=== PATIENT | male | born 1995 | race African-American/Black ===

== ENCOUNTER 2018-09-25 11:26 | Emergency (ER) | payer OTHER ==
[~2018-09-25] VITALS: Ht 177.8 cm; Wt 88.5 kg
--- NOTE | 2018-09-25 11:55 | PHYS DOC ---
Adult General Chief Complaint Chief Complaint: SHOULDER INJURY HPI HPI 23-year-old male presents with right shoulder pain. The patient was climbing a rope at the local gym when he fell. He fell on his right arm stretched arm. He currently only has pain in the clavicle and superior shoulder region. There does appear to be some deformity. The patient denies numbness or tingling. He is concern for fracture. He denies any other injuries or complaints.[] Review of Systems Review of Systems Constitutional: Denies fever or chills [] Eyes: Denies change in visual acuity, redness, or eye pain [] HENT: Denies nasal congestion or sore throat [] Respiratory: Denies cough or shortness of breath [] Cardiovascular: No additional information not addressed in HPI [] GI: Denies abdominal pain, nausea, vomiting, bloody stools or diarrhea [] : Denies dysuria or hematuria [] Musculoskeletal: Right shoulder and clavicle pain[] Integument: Denies rash or skin lesions [] Neurologic: Denies headache, focal weakness or sensory changes [] Endocrine: Denies polyuria or polydipsia [] All other systems were reviewed and found to be within normal limits, except as documented in this note. Allergies Allergies Allergies Coded Allergies Type Severity Reaction Last Updated Verified No Known Drug Allergies 09/25/18 No Physical Exam Physical Exam Constitutional: Well developed, well nourished, no acute distress, non-toxic appearance. [] HENT: Normocephalic, atraumatic, bilateral external ears normal, oropharynx moist, no oral exudates, nose normal. [] Eyes: PERRLA, EOMI, conjunctiva normal, no discharge. [] Neck: Normal range of motion, no tenderness, supple, no stridor. [] Cardiovascular:Heart rate regular rhythm, no murmur [] Lungs & Thorax: Bilateral breath sounds clear to auscultation [] Abdomen: Bowel sounds normal, soft, no tenderness, no masses, no pulsatile masses. [] Skin: Warm, dry, no erythema, no rash. [] Back: No tenderness, no CVA tenderness. [] Extremities: Tenderness and deformity over the distal right clavicle. Neurovascularly intact distal[] Neurologic: Alert and oriented X 3, normal motor function, normal sensory function, no focal deficits noted. [] Psychologic: Affect normal, judgement normal, mood normal. [] EKG EKG [] Radiology/Procedures Radiology/Procedures [] Impressions: Right clavicle, 2 views, 09/25/2018: HISTORY: Injury There is superior displacement of the distal clavicle relative to the acromion process compatible with a shoulder separation. There are small radiopacities along the distal and superior ends of the clavicle with underlying cortical irregularity compatible with small avulsion fracture fragments. Dystrophic calcification due to an old injury could also give this appearance. The proximal aspect of the right clavicle is unremarkable. IMPRESSION: Right AC joint separation with small cortical avulsion fragments arising from the distal clavicle. Electronically signed by: Edis Hogan MD (09/25/2018 11:58 AM) [facility] DICTATED AND SIGNED BY: EDIS HOGAN MD DATE: 09/25/18 1158 CC: ANJELICA BOYD DO; PCP,NO ~ Three-view right shoulder study Clinical indications: Fell off rope today. Deformity and pain. FINDINGS: There is a comminuted fracture of the lateral inferior aspect of the right clavicle. There is superior displacement of the clavicle with respect to the acromial process consistent with an AC joint separation. IMPRESSION: AC joint separation with fracture of the lateral inferior aspect of the right clavicle. Electronically signed by: Siddharth Montez MD (09/25/2018 12:09 PM) [place] [id number] DICTATED AND SIGNED BY: SIDDHARTH MONTEZ MD DATE: 09/25/18 1209 CC: ANJELICA BOYD DO; PCP,NO ~ Course & Med Decision Making Course & Med Decision Making Pertinent Labs and Imaging studies reviewed. (See chart for details) The patient has a comminuted distal fracture of the right clavicle as well as complete separation of the AC joint. A grade 3 by my estimation. I will discuss management with orthopedics. The patient has been given [place] 10/325 for pain. I discussed the patient with Dr. Corley and he has recommended shoulder sling for now and follow-up to consider surgery in 2 weeks. Will discharge him with [place] 5/325. He is stable for discharge at this time. [] Dragon Disclaimer Dragon Disclaimer This electronic medical record was generated, in whole or in part, using a voice recognition dictation system. Departure Departure: Impression: Primary Impression: Separation of right acromioclavicular joint, type 3 Disposition: 01 HOME, SELF-CARE Condition: STABLE Patient Instructions: Acromioclavicular Injuries, [id number] Scripts Hydrocodone Bit/Acetaminophen (NORCO 5-325 TABLET) 1 Each Tablet 1 TAB PO PRN Q6HRS PRN for PAIN, #14 TAB 0 Refills Prov: ANJELICA BOYD DO 09/25/18 Problem Qualifiers Primary Impression: Separation of right acromioclavicular joint, type 3 Encounter type: initial encounter Qualified Codes: S43.101A - Unspecified dislocation of right acromioclavicular joint, initial encounter ANJELICA BOYD DO September 25, 2018 11:55
--- NOTE | 2018-09-25 12:00 | RAD ---
Right clavicle, 2 views, 09/25/2018: HISTORY: Injury There is superior displacement of the distal clavicle relative to the acromion process compatible with a shoulder separation. There are small radiopacities along the distal and superior ends of the clavicle with underlying cortical irregularity compatible with small avulsion fracture fragments. Dystrophic calcification due to an old injury could also give this appearance. The proximal aspect of the right clavicle is unremarkable. IMPRESSION: Right AC joint separation with small cortical avulsion fragments arising from the distal clavicle. Electronically signed by: Edis Hogan MD (09/25/2018 11:58 AM) [facility]
--- NOTE | 2018-09-25 12:12 | RAD ---
Three-view right shoulder study Clinical indications: Fell off rope today. Deformity and pain. FINDINGS: There is a comminuted fracture of the lateral inferior aspect of the right clavicle. There is superior displacement of the clavicle with respect to the acromial process consistent with an AC joint separation. IMPRESSION: AC joint separation with fracture of the lateral inferior aspect of the right clavicle. Electronically signed by: Siddharth Montez MD (09/25/2018 12:09 PM) [id number]
[2018-09-25] MEDS ORDERED: HYDROcodone/APAP 5/325MG 1 TAB TABLET PO ONE (12:30)
[2018-09-25] MEDS ORDERED: HYDR-3165 PO (13:08)
[2018-09-25 13:15] VITALS: BP 141/86
== END 2018-09-25 13:15 | disposition home or self-care (01) ==
LOC: EDBD 11:26 → ER 11:26
DX: S42.031A Displaced fracture of lateral end of right clavicle, initial encounter for closed fracture (principal); W17.89XA Other fall from one level to another, initial encounter; Y93.39 Activity, other involving climbing, rappelling and jumping off; Y92.89 Other specified places as the place of occurrence of the external cause; Y99.8 Other external cause status
CPT/HCPCS: 73000; 73030; 99284

== ENCOUNTER 2019-09-24 00:23 | Emergency (ER) | payer OTHER ==
[~2019-09-24] VITALS: Ht 177.8 cm; Wt 88.5 kg
[~2019-09-24 00:23] MED LIST: HYDR-3165 PO
[2019-09-24 00:43] VITALS: BP 135/72
--- NOTE | 2019-09-24 00:54 | PHYS DOC ---
Past History Past Medical History: No Pertinent History Past Surgical History: Tonsillectomy, Other Additional Past Surgical Histo: right shoulder/clavicle repair Smoking: Non-smoker Alcohol Use: None Drug Use: None General Adult EDM: Chief Complaint: ABDOMINAL PAIN HPI: HPI: 24-year-old male presents with sudden right-sided abdominal pain upon waking early this morning. Reports some associated nausea without vomiting. Denies diarrhea or constipation. Denies fever or chills. Reports sensation of not being able to get comfortable. Denies trauma. Denies dysuria or hematuria. Denies history of kidney stones. Review of Systems: Review of Systems: Constitutional: Denies fever or chills Eyes: Denies redness or eye pain HENT: Denies nasal congestion or sore throat Respiratory: Denies cough or shortness of breath Cardiovascular: Denies chest pain or palpitations GI: Reports abdominal pain and nausea; denies vomiting, constipation, or diarrhea : Denies dysuria or hematuria Musculoskeletal: Denies back pain or joint pain Integument: Denies rash or skin lesions Neurologic: Denies headache, focal weakness or sensory changes Complete systems were reviewed and found to be within normal limits, except as documented in this note. Current Medications: Current Meds: Current Medications Medications (Trade) Dose Ordered Sig/Cheryl Start Time Stop Time Status Last Admin Dose Admin Ketorolac Tromethamine (Toradol 15mg Vial) 15 mg 1X ONCE 09/24/19 00:45 09/24/19 00:46 UNV Metoclopramide HCl (Reglan Vial) 10 mg 1X ONCE 09/24/19 00:45 09/24/19 00:46 UNV Sodium Chloride 1,000 ml @ 1,000 mls/hr 1X ONCE 09/24/19 00:45 09/24/19 01:44 UNV Allergies: Allergies: Allergies Coded Allergies Type Severity Reaction Last Updated Verified No Known Drug Allergies 09/25/18 No Physical Exam: PE: Constitutional: Well developed, well nourished, uncomfortable, non-toxic appearance HENT: Normocephalic, atraumatic, oropharynx moist Eyes: Conjunctiva normal, no discharge Neck: Normal range of motion, no tenderness, supple Cardiovascular: Heart rate normal, regular rhythm Lungs & Thorax: Bilateral breath sounds clear to auscultation, no wheezing Abdomen: Soft, RUQ tenderness, no guarding/rebound tenderness/distention Skin: Warm, dry, no erythema, no rash Back: No tenderness, right CVA tenderness Extremities: No tenderness, ROM intact, no edema Neurologic: Alert and oriented X 3, no focal deficits noted Psychologic: Affect normal, judgment normal Current Patient Data: Vital Signs: Vital Signs Date Time Temp Pulse Resp B/P (MAP) Pulse Ox O2 Delivery O2 Flow Rate FiO2 09/24/19 00:43 97.6 60 20 135/72 (93) 97 Room Air EKG: EKG: [] Radiology/Procedures: Radiology/Procedures: PROCEDURE: CT ABDOMEN PELVIS WO CONTRAST PQRS Compliance Statement: One or more of the following individualized dose reduction techniques were utilized for this examination: 1. Automated exposure control 2. Adjustment of the mA and/or kV according to patient size 3. Use of iterative reconstruction technique CT ABDOMEN PELVIS WO CONTRAST Clinical Indication: Right upper quadrant and right flank pain. Comparison: None. Technique: Helical CT imaging of the abdomen and pelvis is performed without IV or oral contrast. Findings: Lung bases are clear. Cardiac size normal. The liver, gallbladder, spleen, pancreas, adrenal glands, and abdominal aorta caliber are normal. There is a punctate nonobstructing left lower pole renal calculus. There is no left hydronephrosis. There is no right renal calculus. There is mild right hydroureteronephrosis secondary to a 3 mm calculus in the proximal right ureter, image 56. The more distal right ureter is decompressed. Stomach unremarkable. There is no dilated small bowel. Scattered stool in the colon. No colon wall thickening is seen. The appendix is normal. There are several subcentimeter pericecal lymph nodes. There is no abdominal adenopathy or free fluid. The urinary bladder is not well distended accentuating the wall thickness. Prostate and seminal vesicles are normal. No pelvic free fluid. There is grade 1 retrolisthesis of L5 on S1 and L4 on L5. IMPRESSION: 1. Mild right obstructive uropathy secondary to a 3 mm proximal ureteral calculus. 2. Punctate nonobstructing left renal calculus. Electronically signed by: Santi Estrella MD (09/24/2019 1:26 AM) [id number] Course & Med Decision Making: Course & Med Decision Making Pertinent Labs and Imaging studies reviewed. (See chart for details) Patient presents with right-sided abdominal pain with associated nausea. Patient appears uncomfortable. Pain addressed. IV fluid hydration provided. Labs obtained and posted to chart. BUN/Creat WNL. WBC also WNL. UA with microscopic h ematuria. Nitrite and LE negative. CT abdomen/pelvis with findings consistent for obstructing proximal ureteral calculi measuring 3mm. Flomax provided. Patient stable for discharge with outpatient follow-up with PCP/Urology. Discussed findings and plan with patient, who acknowledges understanding and agreement. Kate Disclaimer: Kate Disclaimer: This electronic medical record was generated, in whole or in part, using a voice recognition dictation system. Departure Departure: Impression: Primary Impression: Kidney stone Disposition: HOME, SELF-CARE Condition: STABLE Referrals: PCPDARRYN (PCP) Patient Instructions: Diet for Kidney Stones, Kidney Stones, [id number] Additional Instructions: Increase fluid hydration. May also take over the counter Tylenol and/or Ibuprofen for pain or discomfort. Scripts Tramadol Hcl (TRAMADOL HCL) 50 Mg Tablet 50 MG PO PRN Q6HRS PRN for PAIN, #14 TAB Prov: GERALDINE NESS DO 09/24/19 Tamsulosin Hcl (FLOMAX) 0.4 Mg Cap.er.24h 1 CAP PO DAILY for Kidney stone, #7 CAP Prov: GERALDINE NESS DO 09/24/19 Ondansetron (ONDANSETRON ODT) 4 Mg Tab.rapdis 1 TAB PO PRN Q6-8HRS PRN for NAUSEA, #16 TAB Prov: GERALDINE NESS DO 09/24/19 GERALDINE NESS DO September 24, 2019 00:54
[2019-09-24] MEDS ORDERED: METOCLOPRAMIDE HCL 10 MG/2 ML VIAL. IVP ONE (01:00)
[2019-09-24] MEDS ORDERED: KETOROLAC 15 MG/ML VIAL. IVP ONE (01:00)
[2019-09-24] MEDS ORDERED: IV NORMAL SALINE 1,000ML 1,000 ML IV ONE (01:00)
[2019-09-24 01:04] LABS: BASO % 0 % (0-3); EOS # 0.2 x10^3/uL (0.0-0.7); EOS % 2 % (0-3); HEMATOCRIT 45.4 % (39.0-53.0); HEMOGLOBIN 15.4 g/dL (13.0-17.5); LYMPH # 3.2 x10^3/uL (1.0-4.8); LYMPH % 39 % (24-48); MEAN CORPUSCULAR HEMOGLOBIN 30 pg (25-35); MEAN CORPUSCULAR HGB CONC 34 g/dL (31-37); MEAN CORPUSCULAR VOLUME 88 fL (79-100); MONO # 0.7 x10^3/uL (0.0-1.1); MONO % 8 % (0-9); NEUT # 4.1 x10^3uL (1.8-7.7); NEUT % 50 % (31-73); PLATELET COUNT 274 x10^3/uL (140-400); RED BLOOD COUNT 5.17 x10^6/uL (4.30-5.70); WHITE BLOOD COUNT 8.1 x10^3/uL (4.0-11.0)
[2019-09-24 01:12] LABS: CALCIUM 9.2 mg/dL (8.5-10.1); CREATININE 1.2 mg/dL (0.7-1.3); GFR 88.6; POTASSIUM 3.7 mmol/L (3.5-5.1)
[2019-09-24 01:18] LABS: ALBUMIN/GLOBULIN RATIO 1.3 (1.0-1.7); MAGNESIUM 1.8 mg/dL (1.8-2.4); TOTAL BILIRUBIN 0.6 mg/dL (0.2-1.0); TOTAL PROTEIN 7.1 g/dL (6.4-8.2)
--- NOTE | 2019-09-24 01:29 | RAD ---
PQRS Compliance Statement: One or more of the following individualized dose reduction techniques were utilized for this examination: 1. Automated exposure control 2. Adjustment of the mA and/or kV according to patient size 3. Use of iterative reconstruction technique CT ABDOMEN PELVIS WO CONTRAST Clinical Indication: Right upper quadrant and right flank pain. Comparison: None. Technique: Helical CT imaging of the abdomen and pelvis is performed without IV or oral contrast. Findings: Lung bases are clear. Cardiac size normal. The liver, gallbladder, spleen, pancreas, adrenal glands, and abdominal aorta caliber are normal. There is a punctate nonobstructing left lower pole renal calculus. There is no left hydronephrosis. There is no right renal calculus. There is mild right hydroureteronephrosis secondary to a 3 mm calculus in the proximal right ureter, image 56. The more distal right ureter is decompressed. Stomach unremarkable. There is no dilated small bowel. Scattered stool in the colon. No colon wall thickening is seen. The appendix is normal. There are several subcentimeter pericecal lymph nodes. There is no abdominal adenopathy or free fluid. The urinary bladder is not well distended accentuating the wall thickness. Prostate and seminal vesicles are normal. No pelvic free fluid. There is grade 1 retrolisthesis of L5 on S1 and L4 on L5. IMPRESSION: 1. Mild right obstructive uropathy secondary to a 3 mm proximal ureteral calculus. 2. Punctate nonobstructing left renal calculus. Electronically signed by: Santi Estrella MD (09/24/2019 1:26 AM) [id number]
[2019-09-24] MEDS ORDERED: TAMSULOSIN 0.4 MG CAP.ER.24H. PO ONE (01:45)
[2019-09-24] MEDS ORDERED: ONDA4TAB12 PO (01:53)
[2019-09-24] MEDS ORDERED: TAMS0.4C97 PO (01:53)
[2019-09-24] MEDS ORDERED: TRAM50TA PO (01:53)
[2019-09-24 02:17] LABS: BACTERIA,URINE MOD /HPF (0-FEW); BILIRUBIN,URINE NEG (NEG); CLARITY,URINE CLOUDY; COLOR,URINE AMBER; GLUCOSE,URINE NEG (NEG); NITRITE,URINE NEG (NEG); RBC,URINE TNTC /HPF (0-2); SQUAMOUS EPITHELIAL CELL,UR FEW /LPF
== END 2019-09-24 02:24 | disposition home or self-care (01) ==
LOC: ER 00:23
DX: N13.2 Hydronephrosis with renal and ureteral calculous obstruction (principal)
CPT/HCPCS: 36415; 74176; 80053; 81001; 83690; 83735; 85025; 87086; 96374; 96375; 99284; J1885; J2765; J7030